=== PATIENT | female | born 1930 | race Caucasian/White ===

== ENCOUNTER 2017-08-17 12:28 | Emergency (ER) | payer OTHER ==
[~2017-08-17] VITALS: Ht 142.2 cm; Wt 41.7 kg
--- NOTE | 2017-08-17 12:40 | NUR ---
BB FROM THE [facility] FOR NUMBNESS ON LIPS AND TONGUE WHILE EATING BREAKFAST AT 1030. DENIES NUMBNESS AT THIS TIME, NAD NOTED, VSS, RESP EVEN AND UNLABORED, RESP EVEN AND UNLABORED, SKIN WARM AND DRY, PT PUT ON MONITOR, WAITING FOR MD POTTER
--- NOTE | 2017-08-17 12:56 | NUR ---
URINE COLLECTED CALLED LAB FOR [id number]
[2017-08-17 13:00] LABS: CALCIUM, SERUM 9.1 mg/dL (8.5-10.1); CARBON DIOXIDE 30 mmol/L (21-32); CHLORIDE 99 mmol/L (98-107); CREATININE 0.6 mg/dL (0.6-1.3); GLUCOSE 145 mg/dL (74-106); POTASSIUM 4.9 mmol/L (3.5-5.1); SODIUM SERUM 136 mmol/L (136-145); UREA NITROGEN, BLOOD 15 mg/dL (7-18)
[2017-08-17 13:09] LABS: TROPONIN I < 0.017 ng/mL (0.00-0.056)
[2017-08-17 13:13] LABS: APPEARANCE,URINE Clear (CLEAR); BILIRUBIN,URINE Negative (NEGATIVE); BLOOD, URINE Negative Ery/uL (NEGATIVE); COLOR,URINE Yellow (YELLOW); KETONES,URINE Negative (NEGATIVE); LEUKOCYTE ESTERASE ,URINE Negative (NEGATIVE); NITRITE, URINE Negative (NEGATIVE); PROTEIN,URINE Negative (NEGATIVE); UGLUCOSE Negative (NEGATIVE); UROBILINOGEN,URINE 0.2 EU/dL (0.2)
[2017-08-17 13:17] LABS: THYROID STIMULATING HORMONE 2.727 uIU/mL (0.358-3.74)
[2017-08-17 13:22] LABS: BASOPHILS # (AUTO) 0.4 /CMM (0.0-0.2); BASOPHILS % (AUTO) 0.3 % (0.0-2.0); HEMATOCRIT 44 % (33-45); HEMOGLOBIN 13.3 g/dL (11.5-14.8); LYMPHOCYTES # (AUTO) 106.8 /CMM (0.8-4.8); LYMPHOCYTES % (AUTO) 82.5 % (20.0-44.0); MEAN CORPUSCULAR HEMOGLOBIN 29 PG (26.0-33.0); MEAN CORPUSCULAR HGB CONC 31 g/dl (31.0-36.0); MEAN CORPUSCULAR VOLUME 96 fL (82-100); MONOCYTES # (AUTO) 12.3 /CMM (0.1-1.30); MONOCYTES % (AUTO) 9.5 % (2.0-12.0); NEUTROPHILS # (AUTO) 9.9 /CMM (1.8-8.9); NEUTROPHILS % (AUTO) 7.7 % (43.0-81.0); PLATELET COUNT (AUTO) 238 /CMM (150-450); RDW COEFFICIENT OF VARIATION 19.3 (11.5-15.0); RED BLOOD CELL COUNT(AUTO) 4.59 MIL/uL (4.0-5.2)
--- NOTE | 2017-08-17 13:24 | NUR ---
PT TO CT SCAN
[2017-08-17 13:33] LABS: WHITE BLOOD COUNT (AUTO) 129.5 K/uL (4.3-11.0)
[2017-08-17 13:46] LABS: LYMPHOCYTES % (MANUAL) 96 % (16-48); MONOCYTES % (MANUAL) 1 % (0-11.0); NEUTROPHILS % (MANUAL) 2 (42-76); REACTIVE LYMPHOCYTES 1 % (0-0)
[2017-08-17 14:29] VITALS: BP 159/68
== END 2017-08-17 14:30 | disposition home or self-care (01) ==
LOC: ER 12:29
DX: R20.2 Paresthesia of skin (principal); I10 Essential (primary) hypertension; E11.9 Type 2 diabetes mellitus without complications; Z88.0 Allergy status to penicillin; Z88.2 Allergy status to sulfonamides; Z88.8 Allergy status to other drugs, medicaments and biological substances
CPT/HCPCS: 36415; 70450; 71010; 80048; 81001; 83735; 84443; 84484; 85025; 93005; 99285; A4606; 81000-TC; Z7610

== ENCOUNTER 2017-08-30 14:15 | Emergency (ER) | payer OTHER ==
[~2017-08-30] VITALS: Ht 142.2 cm; Wt 44.9 kg
--- NOTE | 2017-08-30 14:20 | NUR ---
[id number] FROM [facility] SO: HIGH BLOOD PRESSURE X 1 DAY. A/OX 4. BREATHING EVEN AND UNLABORED. NO SOB. VITALS STABLE. SAFETY AND COMFORT MEASURES IN PLACE. AWAITING MD ORDERS.
[2017-08-30] MEDS ORDERED: CLONIDINE HCL 0.1 MG TABLET PO ONE (15:00)
[2017-08-30] MEDS ORDERED: CLONIDINE HCL 0.1 MG TABLET ONE (15:17)
--- NOTE | 2017-08-30 15:24 | NUR ---
PATIENT MEDICATED PER MD ORDERS.
[2017-08-30 16:55] VITALS: BP 111/67
--- NOTE | 2017-08-30 16:56 | NUR ---
Patient discharged back to [facility] in stable condition. Written and verbal after care instructions given. Patient verbalizes understanding of instruction.
== END 2017-08-30 16:55 ==
LOC: ER 14:17
DX: I10 Essential (primary) hypertension (principal); C91.11 Chronic lymphocytic leukemia of B-cell type in remission; E11.9 Type 2 diabetes mellitus without complications; E78.00 Pure hypercholesterolemia, unspecified; Z85.038 Personal history of other malignant neoplasm of large intestine; Z86.73 Personal history of transient ischemic attack (TIA), and cerebral infarction without residual deficits; Z88.0 Allergy status to penicillin; Z88.2 Allergy status to sulfonamides; Z88.8 Allergy status to other drugs, medicaments and biological substances; Z90.13 Acquired absence of bilateral breasts and nipples; Z90.81 Acquired absence of spleen
CPT/HCPCS: 99283; A4606; Z7610

== ENCOUNTER 2019-06-09 16:24 | Emergency (ER) | payer OTHER ==
[~2019-06-09] VITALS: Ht 142.2 cm; Wt 39.9 kg
[2019-06-09 16:25] VITALS: BP 147/64
[2019-06-09] MEDS ORDERED: OXYMETAZOLINE HCL NASAL SPRAY 30 ML BOTTLE NS ONE (17:11)
[2019-06-09] MEDS: OXYMETAZOLINE HCL NASAL SPRAY 30 ML BOTTLE NS ONE (17:22)
== END 2019-06-09 18:21 | disposition home or self-care (01) ==
LOC: ER 16:26
DX: R04.0 Epistaxis (principal); I11.0 Hypertensive heart disease with heart failure; I50.9 Heart failure, unspecified; E11.9 Type 2 diabetes mellitus without complications; D69.1 Qualitative platelet defects; Z85.6 Personal history of leukemia; Z85.038 Personal history of other malignant neoplasm of large intestine; Z86.73 Personal history of transient ischemic attack (TIA), and cerebral infarction without residual deficits; Z90.13 Acquired absence of bilateral breasts and nipples; Z88.0 Allergy status to penicillin; Z88.2 Allergy status to sulfonamides; Z88.8 Allergy status to other drugs, medicaments and biological substances; Z99.81 Dependence on supplemental oxygen